=== PATIENT | male | born 1990 | race Caucasian/White ===

== ENCOUNTER 2022-03-23 12:45 | Inpatient (IN) ==
[2022-03-23 14:38] LABS: Basophils # (auto) 0.06 K/uL (0-0.2); Basophils % (auto) 0.5 %; Eosinophils # (auto) 0.12 K/uL (0-0.50); Eosinophils % (auto) 1.1 %; Hematocrit (blood only) 39.8 % (40.1-51.0); Hemoglobin 13.5 g/dl (14.0-18.0); Immature Granulocytes % (auto) 0.9 %; Lymphocytes # (auto) 2.28 K/uL (1.2-3.4); Lymphocytes % (auto) 20.2 %; Mean Corpuscular Hemoglobin 28.8 pg (25.0-34.0); Mean Corpuscular Hgb Conc 33.9 g/dL (32.0-36.0); Mean Platelet Volume 9.5 fL (9.4-12.4); Monocytes # (auto) 0.85 K/uL (0.24-0.82); Monocytes % (auto) 7.5 %; Neutrophils # (auto) 7.85 K/uL (1.4-6.5); Neutrophils % (auto) 69.8 %; Platelet Count 290 K/uL (130-400); RDW Coefficient of Variation 12.6 % (11.5-14.5); RDW Standard Deviation 38.7 fL (36.4-46.3); Red Blood Count 4.68 M/uL (4.63-6.08); White Blood Count 11.26 K/ul (4.8-10.8)
[2022-03-23 15:08] LABS: Appearance Urine Clear (Clear); Bacteria Urine Automated Negative (Negative); Bilirubin Urine Negative (Negative); Blood Urine 2+ (Negative); Color Urine Yellow; Glucose Urine UA 3+ (Negative); Ketones Urine Trace (Negative); Leukocyte Esterase Urine Negative (Negative); Nitrite Urine Negative (Negative); Protein Urine Trace (Negative); Specific Gravity Urine 1.038 (1.000-1.030); Urobilinogen Urine Negative (Negative); WBC Urine Automated >30 /hpf (0-5); pH Urine 5.5 (4.5-7.5)
[2022-03-23 15:09] LABS: Albumin Globulin Ratio 1.1 (0.9-2); Albumin Level 4.3 gm/dl (3.4-5.0); BUN Creatinine Ratio 15.2 (10-20); Bilirubin,Total 0.7 mg/dl (0.2-1.0); Calcium 9.6 mg/dl (8.5-10.1); Creatinine Clr Calc Pharmacy 163.4 ml/min; Est GFR (African American) 116.3 ml/min; Est GFR (Non-African American) 100.4 ml/min; Potassium 4.2 mmol/L (3.5-5.1); Total Protein 8.3 gm/dl (6.0-8.3)
[2022-03-23] MEDS: SODIUM CHLORIDE 0.9% 500 ML IV STA ×2 (15:27→15:56)
[2022-03-23] MEDS ORDERED: SODIUM CHLORIDE 0.9% 1000ML 1,000 ML IV ONE (15:28)
[2022-03-23] MEDS ORDERED: NovoLIN-R INSULIN PER UNIT CHARGE IV STA (15:28)
[2022-03-23] MEDS ORDERED: PIPERACILLIN/TAZOBACTAM 4.5 GM/120 ML BAG IV ONE (15:39)
[2022-03-23] MEDS ORDERED: IOVERSOL 350 MG 100mL Prefilled Syringe IV ONE (15:48)
[2022-03-23] MEDS ORDERED: TAMSULOSIN HCL 0.4 MG CAP PO ONE (16:20)
--- NOTE | 2022-03-23 17:14 | Emergency Department Note ---
Impression & Plan Right ureteral calculus, UTI (urinary tract infection) ED Provider Note CHIEF COMPLAINT: Right flank pain HISTORY OF PRESENT ILLNESS: This 32-year-old male patient presents to the emergency department with complaints of right flank pain that began suddenly at about 5 AM. The patient states several weeks ago he had burning with urination but that seemed to resolve. He did test positive for COVID about 10 days ago but has been fairly asymptomatic. Today he woke up suddenly with this pain but denies fevers, vomiting or diarrhea. He thinks he may have had some blood in the urine. Patient states he has followed with Dr. Sherman but has not seen him in "a while." He does not take any medications. REVIEW OF SYSTEMS: A review of systems was performed with positives and pertinent negatives listed in the history of present illness. 10 systems were reviewed and are otherwise negative. ALLERGIES: see below MEDICATIONS: see below PMH: see below SOCIAL HISTORY: see below DDx: Renal colic, UTI, appendicitis, diverticulitis, mesenteric ischemia, aortic pathology, infections, inflammatory bowel disease, PUD, biliary pathology, as well as other pathologies. PHYSICAL EXAM: Vital signs reviewed. General: Well-appearing 32-year-old male, in no significant distress. HEENT: No scleral icterus, PERRLA, neck supple. Moist mucous membranes. Cardiovascular: Regular rate and rhythm, no extra sounds. Pulmonary: Clear to auscultation bilaterally, normal work of breathing. Abdomen: Soft, obese nontender, nondistended, positive bowel sounds. Musculoskeletal: Atraumatic, no peripheral edema. No CVA tenderness. Neurologic: Patient awake alert and oriented x 3, speech is clear Skin: Warm, dry, no rash EMERGENCY DEPARTMENT COURSE/MDM: This patient was evaluated and appeared to be in no significant distress. IV access was obtained and laboratory work was drawn. The patient was placed on the compliance monitor and noted to be in a normal sinus rhythm. He was hydrated with normal saline solution. Laboratory work reveals a mild leukocytosis, normal renal function however his glucose is 294. UA is indicative of infection with greater than 30 WBCs, however there are no nitrates and negative leukocyte esterase. Patient is noted to have a distal ureteral calculus on CT imaging on the right side. Given his uncontrolled diabetes, positive UA and an obstructing stone, patient will be evaluated by the hospitalist service for further management. Dr. Govea of urology was consulted and will see the patient for further management. MONITORING: An order for cardiac monitoring was placed and the patient is noted to be in a NSR at 92 beats per minute. RADIOLOGY: See below DISPOSITION: Admission Past Med/Surg History Medical History Diabetes mellitus type 2 in obese Diarrhea Essential hypertension Head ache Hyperglycemia Kidney calculus Morbid obesity Morbid obesity with BMI of 45.0-49.9, adult Viral illness Family History Grandfather (Maternal) Diabetes Other No pertinent family history in first degree relatives Social History Smoking Status: Never smoker Hx Alcohol Use: Yes Alcohol type: other Hx Substance Use: No Preferred Language: Hong Konger Communication Ability: Effective Manager Test Required: No Beliefs That Will Affect Care: None Current Living Situation: Parent and Family Feels Safe at Home: Yes Assistive Devices: None Allergies Allergies Allergy/AdvReac Type Severity Reaction Status Date / Time No Known Allergies Allergy Verified 03/23/22 16:27 Home Meds Previous Rx's Medication Instructions Recorded acetaminophen 325 mg tablet 650 mg PO Q8H PRN mild pain (scale 03/25/22 score 1-4) #30 tabs blood sugar diagnostic (OneTouch #100 ea 03/25/22 Verio test strips) blood-glucose meter (OneTouch #1 ea 03/25/22 Verio Meter) lancets 33 gauge (OneTouch Delica #100 ea 03/25/22 Lancets) lisinopril 2.5 mg tablet 2.5 mg PO QAM #30 tabs 03/25/22 metformin 500 mg tablet,extended 500 mg PO PM #30 tabs 03/25/22 release 24 hr tamsulosin 0.4 mg capsule 0.4 mg PO QAM #30 caps 03/25/22 Results & Data (ED) Vital Signs Vital Signs - 24 hr 03/23/22 13:05 03/23/22 15:28 Temperature 36.8 C Temperature Source Oral Pulse Rate 103 H Pulse Rate [Right Finger] 92 H Respiratory Rate 20 20 Respiratory Effort / Characteristics Non-Labored Respiratory Depth Normal Blood Pressure 204/125 H Blood Pressure [Right Arm] 155/94 H Blood Pressure Mean 151 Blood Pressure Mean [Right Arm] 114 Pulse Oximetry 97 97 Oxygen Delivery Method Room Air Sepsis Recent Fever Within 48 Hours No Sepsis New/Unexplained Change in Mental Status No Sepsis Action Taken by Nursing No Action Required Home Medications Current Medication List: was personally reviewed by me Laboratory Data Attestation: I reviewed the patient's lab results. Result diagrams: 03/25/22 09:41 03/25/22 09:41 Lab Results 03/23/22 03/23/22 03/23/22 Range/Units 14:25 14:25 14:25 WBC 11.26 H (4.8-10.8) K/ul RBC 4.68 (4.63-6.08) M/uL Hgb 13.5 L (14.0-18.0) g/dl Hct 39.8 L (40.1-51.0) % MCV 85.0 (80.0-100.0) fL MCH 28.8 (25.0-34.0) pg MCHC 33.9 (32.0-36.0) g/dL RDW Std Deviation 38.7 (36.4-46.3) fL RDW Coeff of Ponce 12.6 (11.5-14.5) % Plt Count 290 (130-400) K/uL MPV 9.5 (9.4-12.4) fL Immature Gran % (Auto) 0.9 % Neut % (Auto) 69.8 % Lymph % (Auto) 20.2 % [place] % (Auto) 7.5 % Eos % (Auto) 1.1 % Baso % (Auto) 0.5 % Neut # (Auto) 7.85 H (1.4-6.5) K/uL Lymph # (Auto) 2.28 (1.2-3.4) K/uL [place] # (Auto) 0.85 H (0.24-0.82) K/uL Eos # (Auto) 0.12 (0-0.50) K/uL Baso # (Auto) 0.06 (0-0.2) K/uL Immature Gran # (Auto) 0.10 H (0.00-0.02) K/uL Sodium 136 (136-145) mmol/L Potassium 4.2 (3.5-5.1) mmol/L Chloride 97 L (98-107) mmol/L Carbon Dioxide 24 (21-32) mmol/L Anion Gap 11.4 H (3-11) BUN 15 (6-23) mg/dl Creatinine 0.99 (0.6-1.4) mg/dl Est Cr Clr Drug Dosing 163.4 ml/min Est GFR ( Amer) 116.3 ml/min Est GFR (Non-Af Amer) 100.4 ml/min BUN/Creatinine Ratio 15.2 (10-20) Glucose 294 H (70-99(Fasting)) mg/dl Calcium 9.6 (8.5-10.1) mg/dl Total Bilirubin 0.7 (0.2-1.0) mg/dl AST 34 (13-39) U/L ALT 65 H (7-52) U/L Alkaline Phosphatase 84 (34-104) U/L Total Protein 8.3 (6.0-8.3) gm/dl Albumin 4.3 (3.4-5.0) gm/dl Globulin 4.0 (2.5-4.0) gm/dl Albumin/Globulin Ratio 1.1 (0.9-2) TSH (0.300-4.500) uIu/ml Urine Color Yellow Urine Appearance Clear (Clear) Urine pH 5.5 (4.5-7.5) Ur Specific [place] 1.038 H (1.000-1.030) Urine Protein Trace H (Negative) Urine Glucose (UA) 3+ H (Negative) Urine Ketones Trace H (Negative) Urine Blood 2+ H (Negative) Urine Nitrite Negative (Negative) Urine Bilirubin Negative (Negative) Urine Urobilinogen Negative (Negative) Ur Leukocyte Esterase Negative (Negative) Urine WBC (Auto) >30 H (0-5) /hpf Urine RBC (Auto) 10-30 H (0-4) /hpf U Hyaline Cast (Auto) 1-5 (0-5) /lpf U Epithel Cells (Auto) 10-20 H (0-5) /lpf Urine Bacteria (Auto) Negative (Negative) SARS-CoV-2, RNA, NAAT (NEGATIVE) 03/23/22 03/23/22 Range/Units 14:25 16:40 WBC (4.8-10.8) K/ul RBC (4.63-6.08) M/uL Hgb (14.0-18.0) g/dl Hct (40.1-51.0) % MCV (80.0-100.0) fL MCH (25.0-34.0) pg MCHC (32.0-36.0) g/dL RDW Std Deviation (36.4-46.3) fL RDW Coeff of Ponce (11.5-14.5) % Plt Count (130-400) K/uL MPV (9.4-12.4) fL Immature Gran % (Auto) % Neut % (Auto) % Lymph % (Auto) % [place] % (Auto) % Eos % (Auto) % Baso % (Auto) % Neut # (Auto) (1.4-6.5) K/uL Lymph # (Auto) (1.2-3.4) K/uL [place] # (Auto) (0.24-0.82) K/uL Eos # (Auto) (0-0.50) K/uL Baso # (Auto) (0-0.2) K/uL Immature Gran # (Auto) (0.00-0.02) K/uL Sodium (136-145) mmol/L Potassium (3.5-5.1) mmol/L Chloride (98-107) mmol/L Carbon Dioxide (21-32) mmol/L Anion Gap (3-11) BUN (6-23) mg/dl Creatinine (0.6-1.4) mg/dl Est Cr Clr Drug Dosing ml/min Est GFR ( Amer) ml/min Est GFR (Non-Af Amer) ml/min BUN/Creatinine Ratio (10-20) Glucose (70-99(Fasting)) mg/dl Calcium (8.5-10.1) mg/dl Total Bilirubin (0.2-1.0) mg/dl AST (13-39) U/L ALT (7-52) U/L Alkaline Phosphatase (34-104) U/L Total Protein (6.0-8.3) gm/dl Albumin (3.4-5.0) gm/dl Globulin (2.5-4.0) gm/dl Albumin/Globulin Ratio (0.9-2) TSH 0.680 (0.300-4.500) uIu/ml Urine Color Urine Appearance (Clear) Urine pH (4.5-7.5) Ur Specific [place] (1.000-1.030) Urine Protein (Negative) Urine Glucose (UA) (Negative) Urine Ketones (Negative) Urine Blood (Negative) Urine Nitrite (Negative) Urine Bilirubin (Negative) Urine Urobilinogen (Negative) Ur Leukocyte Esterase (Negative) Urine WBC (Auto) (0-5) /hpf Urine RBC (Auto) (0-4) /hpf U Hyaline Cast (Auto) (0-5) /lpf U Epithel Cells (Auto) (0-5) /lpf Urine Bacteria (Auto) (Negative) SARS-CoV-2, RNA, NAAT NEGATIVE (NEGATIVE) Administered Medications Discontinued Medications Acetaminophen (Acetaminophen 325 Mg Tab) 650 mg PO Q4H PRN PRN Reason: pain/fever Stop: 04/22/22 18:32 Last Admin: 03/25/22 11:49 Dose: 650 mg Documented By: YUNI Carvedilol (Carvedilol 3.125 Mg Tab) 3.125 mg PO NOW ONE Stop: 03/23/22 17:45 Last Admin: 03/23/22 18:19 Dose: 3.125 mg Documented By: JAH Enoxaparin Sodium (Enoxaparin Inj 40 Mg/0.4 Ml Syr) 40 mg SQ HS FERMIN Stop: 04/22/22 18:59 Last Admin: 03/24/22 20:46 Dose: 40 mg Documented By: Admin: 03/23/22 20:50 Dose: 40 mg Documented By: BALDOMERO Sodium Chloride (Nss) 500 mls @ 999 mls/hr IV .Q31M STA Stop: 03/23/22 14:19 Last Admin: 03/23/22 15:56 Dose: Not Given Documented By: JAH Sodium Chloride (Nss 1000ml) 1,000 mls @ 999 mls/hr IV .Q1H1M ONE Stop: 03/23/22 16:28 Last Infusion: 03/23/22 17:05 Dose: 0 mls/hr Documented By: Admin: 03/23/22 16:04 Dose: 999 mls/hr Documented By: JAH Piperacillin Sod/Tazobactam Sod (Zosyn) 4.5 gm in 120 mls @ 240 mls/hr IV NOW ONE Stop: 03/23/22 16:08 Last Infusion: 10/08/22 16:34 Dose: 0 mls/hr Documented By: Admin: 03/23/22 16:04 Dose: 240 mls/hr Documented By: JAH Sodium Chloride (Nss 1000ml) 1,000 mls @ 75 mls/hr IV .[id number] FERMIN Stop: 04/22/22 17:44 Last Infusion: 03/24/22 14:44 Dose: 0 mls/hr Documented By: [id number] Admin: 03/24/22 09:05 Dose: 75 mls/hr Documented By: [id number] Infusion: 03/24/22 09:04 Dose: 0 mls/hr Documented By: [id number] Admin: 03/23/22 19:44 Dose: 75 mls/hr Documented By: BALDOMERO Piperacillin Sod/Tazobactam (Sod 4.5 gm/ Dextrose) 120 mls @ 30 mls/hr IV Q8H [facility]; Protocol Stop: 04/02/22 20:59 Last Admin: 03/25/22 12:51 Dose: 30 mls/hr Documented By: Infusion: 03/25/22 09:53 Dose: 0 mls/hr Documented By: Admin: 03/25/22 05:45 Dose: 30 mls/hr Documented By: Infusion: 03/25/22 00:50 Dose: 0 mls/hr Documented By: Admin: 03/24/22 20:46 Dose: 30 mls/hr Documented By: Infusion: 03/24/22 19:10 Dose: 0 mls/hr Documented By: Admin: 03/24/22 15:10 Dose: 30 mls/hr Documented By: [id number] Infusion: 03/24/22 09:55 Dose: 0 mls/hr Documented By: [id number] Admin: 03/24/22 05:55 Dose: 30 mls/hr Documented By: Infusion: 03/24/22 00:47 Dose: 0 mls/hr Documented By: Admin: 03/23/22 20:45 Dose: 30 mls/hr Documented By: BALDOMERO Insulin Aspart (Insulin Aspart Per Unit) 0 units SC ACHS FERMIN Stop: 04/22/22 18:44 Last Admin: 03/23/22 23:29 Dose: Not Given Documented By: Admin: 03/23/22 20:49 Dose: 5 units Documented By: BALDOMERO Co-signed By: PRICE Insulin Aspart (Insulin Aspart Per Unit) 0 units SC Q6 FERMIN Stop: 04/23/22 00:00 Last Admin: 03/24/22 18:36 Dose: 9 units Documented By: [id number] Co-signed By: YEN Admin: 03/24/22 13:50 Dose: 6 units Documented By: [id number] Co-signed By: YEN Admin: 03/24/22 06:12 Dose: 2 units Documented By: BALDOMERO Co-signed By: SADIE Admin: 03/24/22 00:47 Dose: 3 units Documented By: BALDOMERO Co-signed By: SADIE Insulin Aspart (Insulin Aspart Per Unit) 0 units SC ACHS [facility] Stop: 04/23/22 20:59 Last Admin: 03/25/22 12:51 Dose: 5 units Documented By: YUNI Co-signed By: BEATRIZ Admin: 03/25/22 09:04 Dose: 8 units Documented By: YUNI Co-signed By: ANDREW Admin: 03/24/22 21:46 Dose: 6 units Documented By: BALDOMERO Co-signed By: PRICE Insulin Glargine (Lantus Per Unit Charge) 10 units SQ ONE ONE Stop: 03/23/22 19:01 Last Admin: 03/23/22 20:49 Dose: 10 units Documented By: BALDOMERO Co-signed By: PRICE Insulin Glargine (Lantus Per Unit Charge) 15 units SQ ONE ONE Stop: 03/24/22 07:46 Last Admin: 03/24/22 09:12 Dose: 15 units Documented By: [id number] Co-signed By: YEN Insulin Glargine (Lantus Per Unit Charge) 0 units SQ [facility]; Protocol Stop: 04/23/22 20:59 Last Admin: 03/24/22 21:46 Dose: 20 units Documented By: BALDOMERO Co-signed By: PRICE Insulin Glargine (Lantus Per Unit Charge) 35 units SQ ONE ONE Stop: 03/25/22 09:01 Last Admin: 03/25/22 09:04 Dose: 35 units Documented By: YUNI Co-signed By: ANDREW Insulin Human Regular (Novolin-R Insulin Per Unit Charge) 6 units IV NOW STA Stop: 03/23/22 15:29 Last Admin: 03/23/22 16:05 Dose: 6 units Documented By: JAH Co-signed By: LANEY Ioversol (Ioversol 350 Mg 100ml Prefilled Syringe) 93 ml IV ONCE ONE Stop: 03/23/22 15:49 Last Admin: 03/23/22 15:48 Dose: 93 ml Documented By: ALAN Lisinopril (Lisinopril 2.5 Mg Tab) 2.5 mg PO QAM [facility] Stop: 04/23/22 08:59 Last Admin: 03/25/22 09:01 Dose: 2.5 mg Documented By: Admin: 03/24/22 09:06 Dose: 2.5 mg Documented By: [id number] Morphine Sulfate (Morphine Sulfate 4 Mg/Ml 1 Ml Carp\\Vial) 4 mg IV Q4H PRN PRN Reason: Pain Stop: 04/06/22 20:23 Last Admin: 03/23/22 20:41 Dose: 4 mg Documented By: BALDOMERO Oxycodone HCl (Oxycodone Hcl Ir 5 Mg Tab (Immediate Release)) 5 - 10 mg PO QID PRN PRN Reason: Pain Stop: 04/06/22 20:23 Last Admin: 03/24/22 00:51 Dose: 10 mg Documented By: BALDOMERO Tamsulosin HCl (Tamsulosin Hcl 0.4 Mg Cap) 0.4 mg PO NOW ONE Stop: 03/23/22 16:21 Last Admin: 03/23/22 16:44 Dose: 0.4 mg Documented By: JAH Tamsulosin HCl (Tamsulosin Hcl 0.4 Mg Cap) 0.4 mg PO ONE ONE Stop: 03/24/22 14:31 Last Admin: 03/24/22 15:50 Dose: 0.4 mg Documented By: [id number] Tamsulosin HCl (Tamsulosin Hcl 0.4 Mg Cap) 0.4 mg PO [facility] Stop: 04/24/22 08:59 Last Admin: 03/25/22 09:02 Dose: 0.4 mg Documented By: YUNI Discharge Plan Visit Data Chief Complaint: Flank Pain Stated Complaint: BACK PAIN, FLANK PAIN ED Provider: Ruma Weeks Discharge Problem: Right ureteral calculus, UTI (urinary tract infection) Patient Disposition: Admitted As Inpatient Discharge Instructions Interventions: ED Discharge Assessment Last Done: 03/23/22 18:23
--- NOTE | 2022-03-23 17:36 | History & Physical Report ---
Date of Service March 23, 2022 Assessment & Plan (1) Right ureteral calculus: Plan: Seen in CT scan of the abdomen associated with pain in the right flank Admit to general medical floor, symptomatic management of pain and discomfort. Started on Flomax Urology consulted and recommended the patient to be n.p.o. after midnight for possible urological procedure (2) UTI (urinary tract infection): Plan: Abnormal urinalysis likely due to nephrolithiasis Started on Zosyn. We will continue on follow-up with a urine culture (3) Diabetes mellitus type 2 in obese: Plan: New diagnosis of hyperglycemia. Patient has not been under the care of a physician for at least 3 years He is morbidly obese Start insulin therapy. Consult pharmacy for management Will need outpatient follow-up with primary care physician and may transition to oral hypoglycemic agent Had a long discussion with the patient regarding improving his lifestyle, exe rcise and weight loss (4) Essential hypertension: Plan: New diagnosis. Patient was not on any blood pressure medications Will start on low-dose lisinopril (5) Hyponatremia: Plan: Likely pseudohyponatremia due to uncontrolled hyperglycemia in conjunction with dehydration Continue IV fluid and recheck BMP in the morning (6) Morbid obesity: Plan: Discussed healthy lifestyle with the patient. Recommended exercise and weight loss Will check TSH and free T4 Check fasting lipid profile History of Present Illness Chief Complaint: Abdominal pain Primary Care Provider: Florentino Sherman MD Patient is a 32-year-old male with no known medical problem who suffered from COVID-19 infection 2 weeks ago presented to the hospital with right-sided flank and abdominal pain. It is started this morning and woke him up from sleep. 10/10 in severity with radiation to the right lower quadrant and groin. Patient remembers some urinary symptoms including dysuria and 1 drop of blood with no fever or chills about 2 weeks ago around the time he had COVID-19 infection but he denies any fever, chills, nausea, vomiting, dysuria or hematuria now. Severity of pain is 4-[address] scan of the abdomen is concerning for right-sided nephrolithiasis with abn ormal urinalysis. He was also found to have elevated blood sugar and hyponatremia. He has not seen a doctor for at least 3 years. He is not taking any medication on a regular basis. He will be admitted to the hospital with a diagnosis of UTI due to nephrolithiasis, new diagnosis of diabetes mellitus type 2 in obese. Allergies Allergy/AdvReac Type Severity Reaction Status Date / Time No Known Allergies Allergy Verified 03/23/22 16:27 Home Medications Medication Instructions Recorded Confirmed Type No Known Home Medications 03/23/22 03/23/22 History Past Med/Surg History Medical History (Updated 03/23/22 @ 17:35 by Sharita Mcclain MD) Diabetes mellitus type 2 in obese Diarrhea Essential hypertension Head ache Hyperglycemia Kidney calculus Morbid obesity Morbid obesity with BMI of 45.0-49.9, adult Viral illness Family History (Updated 03/23/22 @ 17:30 by Sharita Mcclain MD) Grandfather (Maternal) Diabetes Other No pertinent family history in first degree relatives Social History Smoking Status: Never smoker Feels Safe at Home: Yes Review of Systems Review of Systems: Review of system as above, otherwise negative Physical Exam Constitutional: WD/WN, vitals as above Right-sided abdominal pain 11/23 Morbid obese Eyes: PERRL, conjunctivae normal, anicteric sclerae Neck: trachea midline, no thyromegaly Respiratory: normal respiratory effort, lungs clear to auscultation Cardiovascular: RRR, no murmur, no edema Gastrointestinal (Abdomen): Right flank and costovertebral angle tenderness Musculoskeletal: no cyanosis or clubbing, extremities motor strength 5/5 Skin: no rashes, warm and dry Neurologic: patellar DTR's 2+ bilat, sensation intact and PERRL, EOMI, accommodation nl, no face palsy, no dysarthria Results & Data Results & Data ([facility]) Vital Signs (Past 12 Hours) Vital Signs Temp Pulse Pulse Resp BP BP Pulse Ox 03/23/22 15:28 92 H 20 155/94 H 97 03/23/22 13:05 36.8 C 103 H 20 204/125 H 97 O2 Del Method 03/23/22 15:28 Room Air 03/23/22 13:05 Laboratory Results Laboratory Results WBC 11.26 K/ul (4.8-10.8) H 03/23/22 14:25 RBC 4.68 M/uL (4.63-6.08) 03/23/22 14:25 Hgb 13.5 g/dl (14.0-18.0) L 03/23/22 14:25 Hct 39.8 % (40.1-51.0) L 03/23/22 14:25 MCV 85.0 fL (80.0-100.0) 03/23/22 14:25 MCH 28.8 pg (25.0-34.0) 03/23/22 14: MCHC 33.9 g/dL (32.0-36.0) 03/23/22 14:25 RDW Std Deviation 38.7 fL (36.4-46.3) 03/23/22 14: RDW Coeff of Ponce 12.6 % (11.5-14.5) 03/23/22 14: Plt Count 290 K/uL (130-400) 03/23/22 14: MPV 9.5 fL (9.4-12.4) 03/23/22 14:25 Immature Gran % (Auto) 0.9 % 03/23/22 14:25 Neut % (Auto) 69.8 % 03/23/22 14:25 Lymph % (Auto) 20.2 % 03/23/22 14:25 [place] % (Auto) 7.5 % 03/23/22 14:25 Eos % (Auto) 1.1 % 03/23/22 14:25 Baso % (Auto) 0.5 % 03/23/22 14:25 Neut # (Auto) 7.85 K/uL (1.4-6.5) H 03/23/22 14:25 Lymph # (Auto) 2.28 K/uL (1.2-3.4) 03/23/22 14:25 [place] # (Auto) 0.85 K/uL (0.24-0.82) H 03/23/22 14:25 Eos # (Auto) 0.12 K/uL (0-0.50) 03/23/22 14: Baso # (Auto) 0.06 K/uL (0-0.2) 03/23/22 14:25 Immature Gran # (Auto) 0.10 K/uL (0.00-0.02) H 03/23/22 14:25 Sodium 129 mmol/L (136-145) L 03/23/22 14:25 Potassium 4.2 mmol/L (3.5-5.1) 03/23/22 14:25 Chloride 97 mmol/L (98-107) L 03/23/22 14:25 Carbon Dioxide 24 mmol/L (21-32) 03/23/22 14:25 Anion Gap 8 (3-11) 03/23/22 14:25 BUN 15 mg/dl (6-23) 03/23/22 14:25 Creatinine 0.99 mg/dl (0.6-1.4) 03/23/22 14:25 Est Cr Clr Drug Dosing 163.4 ml/min 03/23/22 14:25 Est GFR ( Amer) 116.3 ml/min 03/23/22 14:25 Est GFR (Non-Af Amer) 100.4 ml/min 03/23/22 14:25 BUN/Creatinine Ratio 15.2 (10-20) 03/23/22 14:25 Glucose 294 mg/dl (70-99(Fasting)) H 03/23/22 14:25 Calcium 9.6 mg/dl (8.5-10.1) 03/23/22 14:25 Total Bilirubin 0.7 mg/dl (0.2-1.0) 03/23/22 14:25 AST 34 U/L (13-39) 03/23/22 14:25 ALT 65 U/L (7-52) H 03/23/22 14:25 Alkaline Phosphatase 84 U/L (34-104) 03/23/22 14:25 Total Protein 8.3 gm/dl (6.0-8.3) 03/23/22 14:25 Albumin 4.3 gm/dl (3.4-5.0) 03/23/22 14:25 Globulin 4.0 gm/dl (2.5-4.0) 03/23/22 14:25 Albumin/Globulin Ratio 1.1 (0.9-2) 03/23/22 14:25 Urine Color Yellow 03/23/22 14:25 Urine Appearance Clear (Clear) 03/23/22 14:25 Urine pH 5.5 (4.5-7.5) 03/23/22 14:25 Ur Specific [place] 1.038 (1.000-1.030) H 03/23/22 14:25 Urine Protein Trace (Negative) H 03/23/22 14:25 Urine Glucose (UA) 3+ (Negative) H 03/23/22 14:25 Urine Ketones Trace (Negative) H 03/23/22 14:25 Urine Blood 2+ (Negative) H 03/23/22 14:25 Urine Nitrite Negative (Negative) 03/23/22 14:25 Urine Bilirubin Negative (Negative) 03/23/22 14:25 Urine Urobilinogen Negative (Negative) 03/23/22 14:25 Ur Leukocyte Esterase Negative (Negative) 03/23/22 14:25 Urine WBC (Auto) >30 /hpf (0-5) H 03/23/22 14:25 Urine RBC (Auto) 10-30 /hpf (0-4) H 03/23/22 14:25 U Hyaline Cast (Auto) 1-5 /lpf (0-5) 03/23/22 14:25 U Epithel Cells (Auto) 10-20 /lpf (0-5) H 03/23/22 14:25 Urine Bacteria (Auto) Negative (Negative) 03/23/22 14:25 SARS-CoV-2, RNA, NAAT NEGATIVE (NEGATIVE) 03/23/22 16:[address] scan of the abdomen and pelvis with questionable right ureteral stone Code Status & VTE Plan Code Status Full code VTE Prophylaxis Plan VTE Prophylaxis will be ordered: Yes
[2022-03-23] MEDS ORDERED: carvediloL 3.125 MG TAB PO ONE (17:44)
--- NOTE | 2022-03-23 18:23 | CT Scan Report ---
CT OF THE ABDOMEN AND PELVIS WITH CONTRAST CLINICAL HISTORY: Kidney stone, pyelonephritis. COMPARISON STUDY: CT of the abdomen and pelvis June 17, 2019. TECHNIQUE: Following IV administration of 93 mL of Optiray, axial images of the abdomen and pelvis we re obtained from the lung bases to the proximal femurs. Images were reviewed in the axial, sagittal, and coronal planes. IV contrast was administered without complication. Automated exposure control wa s utilized for the study. A dose lowering technique was utilized adhering to the principles of ALARA . CT DOSE: 1876.32 mGy.cm FINDINGS: Lung bases are unremarkable. A 4 mm distal right ureteral calculus approximately 2.5 cm pro ximal to the ureterovesical junction results in mild right hydronephrosis. The right nephrogram is de layed. There is right perinephric and periureteral stranding. Enhancement of the right kidney is hete rogeneous. A 3 mm right renal calculus is present. A few small left renal calculi measure up to 2 mm. There are no left ureteral calculi. Hepatic steatosis and hepatomegaly are noted. Spleen, adrenal gl ands and pancreas are unremarkable. There is no evidence for a bowel obstruction. The appendix is nor mal. Caliber and wall thickness of small and large bowel are normal. There is no lymphadenopathy. IMPRESSION: 1. 4 mm distal right ureteral calculus which results in mild right hydronephrosis with perinephric an d periureteral stranding. Delayed right nephrogram with heterogeneous enhancement. These findings may be related to the obstruction however superimposed pyelonephritis could appear similar. No renal abs cess. 2. Bilateral nephrolithiasis. 3. Hepatomegaly and hepatic steatosis. ACT 112: Negative or not required by law. Electronically signed by: Akin Olson M.D. 03/23/2022 6:21 PM
[2022-03-23] MEDS ORDERED: GLUCOSE 10 TAB/TUBE PO PRN (18:33)
[2022-03-23] MEDS ORDERED: MAGNESIUM HYDROXIDE SUSP 30 ML UDC PO PRN (18:33)
[2022-03-23] MEDS ORDERED: DEXTROSE 50% 50 ML SYRINGE IV PRN (18:33)
[2022-03-23] MEDS ORDERED: GLUCAGON FOR INJ 1 MG VIAL SQ PRN (18:33)
[2022-03-23] MEDS ORDERED: POLYETHYLENE (MIRALAX) 17 GM PACK PO PRN (18:33)
[2022-03-23] MEDS ORDERED: PHARMACY GLYCEMIC MGMT CONSULT PRN (18:33)
[2022-03-23] MEDS ORDERED: CARBOHYDRATES FOR HYPOGLYCEMIA PO PRN (18:33)
[2022-03-23] MEDS ORDERED: GLUCOSE 40% GEL 15 GM TUBE PO PRN (18:33)
[2022-03-23] MEDS ORDERED: ONDANSETRON INJ 2 MG/ML 2 ML VIAL IV PRN (18:33)
[2022-03-23] MEDS ORDERED: ACETAMINOPHEN 325 MG TAB PO PRN (18:33)
--- NOTE | 2022-03-23 18:49 | Pharmacy Report ---
Pharmacy Glycemic Short Note 2 - Date of Service March 23, 2022 - Glycemic Short BSG Results (Last 24 hours): 03/23/22 03/23/22 14:25 18:21 Glucose 294 H POC Glucose 210 H OUTPATIENT ANTIDIABETIC REGIMEN: * N/A * HbA1c ordered ASSESSMENT: * RB is a 32 year old male with likely new diagnosis of T2DM in setting of morbid obesity * Admitted for right ureteral calculus/suspected UTI, receiving Zosyn currently * Hyperglycemia on presentation (BSG of 294 mg/dL), received 6 mg IV Novolin-R with follow-up BSG of 210 mg/dL * Will order conservative initial insulin regimen in this insulin naive patient * NPO after midnight for possible urologic procedure tomorrow morning PLAN FOR INPATIENT GLYCEMIC CONTROL: * Hold outpatient oral diabetes medications * Basal insulin * Lantus 10 units SQ x 1 * Bolus insulin - based on weight-based stress of 2 dosing (adjusted body weight) * NovoLog per scale ACHS or Q6hrs while NPO * Goal Range: Low 110 mg/dL - High 140 mg/dL * Correction Factor: 20 mg/dL/unit * Nutritional / Prandial insulin per carb ratio of 1 unit per 7 grams CHO consumed
[2022-03-23] MEDS ORDERED: LANTUS PER UNIT CHARGE SQ ONE (19:00)
--- NOTE | 2022-03-23 19:25 | Urology Consultation ---
Date of Consultation March 23, 2022 Assessment & Plan (1) Right ureteral calculus: Plan 32-year-old male with a 3 to 4 mm right distal ureteral calculus. Additionally was admitted to hospital service for diabetes control. Discussed options for stone treatment including medical expulsive therapy versus surgical intervention. Given size and location, recommend medical expulsive therapy Flomax daily to help with passage of stone. Pain medication as needed. Low overall suspicion for infection based on UA. Follow cultures and treat if necessary Continue straining urine Please make patient n.p.o. at midnight in the event that his symptoms would worsen tomorrow morning as I then can take him to the OR for a stent placement Discussed with patient that if he exhibited signs of infection at any time, that would warrant stent as well History of Present Illness Reason for Consultation: Right ureteral calculus Attending Physician: Sharita Mcclain MD History of Present Illness 32-year-old male presented with abdominal pain. I independently reviewed a CT scan of the abdomen and pelvis which showed a 3 mm right distal ureteral calculus with mild hydronephrosis. He had bilateral nonobstructing stones, with the left side being punctate. Labs showed a mild leukocytosis of 11.2, sodium of 129, creatinine of 0.99, glucose of 294, and a urinalysis that was negative for nitrites, negative for leukocyte Estrace, greater than 30 WBCs, 10-30 RBCs and no bacteria. He was admitted to medicine for diabetic control. He reports his pain is a 9 out of 10 now but appears fairly comfortable. He is voiding spontaneously and straining his urine. He reports he does have a history of a previous kidney stone that he passed spontaneously. He has had no previous urologic procedures. He denies any tobacco use. He has no family history of kidney stones. Allergies Allergy/AdvReac Type Severity Reaction Status Date / Time No Known Allergies Allergy Verified 03/23/22 16:27 Home Medications Medication Instructions Recorded Confirmed Type No Known Home Medications 03/23/22 03/23/22 History Patient History Medical History (Updated 03/23/22 @ 17:35 by Sharita Mcclain MD) Diabetes mellitus type 2 in obese Diarrhea Essential hypertension Head ache Hyperglycemia Kidney calculus Morbid obesity Morbid obesity with BMI of 45.0-49.9, adult Viral illness Family History (Updated 03/23/22 @ 17:30 by Sharita Mcclain MD) Grandfather (Maternal) Diabetes Other No pertinent family history in first degree relatives Social History Smoking Status: Never smoker Hx Alcohol Use: Yes Alcohol type: other Hx Substance Use: No Preferred Language: Trinidadian Communication Ability: Effective Dock Superintendent Required: No Beliefs That Will Affect Care: None Current Living Situation: Parent and Family Other Information That Helps Us Care for You: No Feels Safe at Home: Yes Safety Concerns: Feels Safe At This Time Assistive Devices: Glasses Assistive Devices Comment: dentures does not use them Review of Systems Review of Systems: 14 point review of systems negative outside of what is listed above in HPI Physical Exam 2 Physical Exam: General: Alert and oriented, no acute distress HEENT: Normocephalic, mucous membranes moist Pulmonary: Nonlabored respirations Abdomen: Nondistended Extremities: Moves all 4 spontaneously Neuro: No gross deficits Skin: Warm, dry, no rashes noted Results & Data ([facility]) Vital Signs (Past 12 Hours) Vital Signs Temp Pulse Pulse Resp BP BP Pulse Ox 03/23/22 18:48 03/23/22 18:33 36.9 C 99 H 18 172/118 H 97 03/23/22 18:23 03/23/22 18:17 100 H 20 177/104 H 97 03/23/22 15:28 92 H 20 155/94 H 97 03/23/22 13:05 36.8 C 103 H 20 204/125 H 97 O2 Del Method 03/23/22 18:48 Room Air 03/23/22 18:33 Room Air 03/23/22 18:23 Room Air 03/23/22 18:17 Room Air 03/23/22 15:28 Room Air 03/23/22 13:05 PG Care Time/CCT Total # of Minutes Spent Total Time Spent with Patient: Total time spent is greater than 50% in coordination of care (as documented) at patient's floor/unit and/or counseling patient: Coding Level of Care Code 20246 Inpt Consult Level 5 Diagnoses Right ureteral calculus N20.1
[2022-03-23] MEDS: SODIUM CHLORIDE 0.9% 1000ML 1,000 ML IV SCH (19:44)
[2022-03-23] MEDS ORDERED: oxyCODONE HCL IR 5 MG TAB (IMMEDIATE RELEASE) PO PRN (20:24)
[2022-03-23] MEDS ORDERED: MoRPHine SULFATE 4 MG/ML 1 ML CARP\\VIAL IV PRN (20:24)
[2022-03-23] MEDS: PIPERACILLIN/TAZOBACTAM 4.5 GM in DEXTROSE 5% 100 ML IV SCH (20:45)
[2022-03-23] MEDS: INSULIN ASPART PER UNIT SC SCH ×2 (20:49→23:29)
[2022-03-23] MEDS: ENOXAPARIN INJ 40 MG/0.4 ML SYR SQ SCH (20:50)
[2022-03-24] MEDS: INSULIN ASPART PER UNIT SC SCH ×5 (00:47→21:46)
[2022-03-24] MEDS: PIPERACILLIN/TAZOBACTAM 4.5 GM in DEXTROSE 5% 100 ML IV SCH ×3 (05:55→20:46)
[2022-03-24 06:43] LABS: Hematocrit (blood only) 35.7 % (40.1-51.0); Hemoglobin 12.2 g/dl (14.0-18.0); Mean Corpuscular Hemoglobin 29.3 pg (25.0-34.0); Mean Corpuscular Hgb Conc 34.2 g/dL (32.0-36.0); Mean Corpuscular Volume 85.6 fL (80.0-100.0); Mean Platelet Volume 9.5 fL (9.4-12.4); Platelet Count 256 K/uL (130-400); RDW Coefficient of Variation 12.8 % (11.5-14.5); RDW Standard Deviation 39.7 fL (36.4-46.3); Red Blood Count 4.17 M/uL (4.63-6.08)
[2022-03-24 07:02] LABS: Alanine Aminotransferase 51 U/L (7-52); Albumin Level 3.8 gm/dl (3.4-5.0); Alkaline Phosphatase 70 U/L (34-104); Aspartate Aminotransferase 26 U/L (13-39); BUN Creatinine Ratio 12.5 (10-20); Bilirubin,Total 0.8 mg/dl (0.2-1.0); Blood Urea Nitrogen 15 mg/dl (6-23); Calcium 8.8 mg/dl (8.5-10.1); Carbon Dioxide 23 mmol/L (21-32); Chloride 97 mmol/L (98-107); Cholesterol 235 mg/dl (0-200); Creatinine Clr Calc Pharmacy 134.8 ml/min; Est GFR (African American) 92.2 ml/min; Est GFR (Non-African American) 79.5 ml/min; Glucose 218 mg/dl (70-99(Fasting)); HDL Cholesterol 44 mg/dl; Potassium 3.7 mmol/L (3.5-5.1); Total Protein 7.4 gm/dl (6.0-8.3); Triglycerides 490 mg/dl (0-150)
[2022-03-24 07:05] LABS: Albumin Globulin Ratio 1.1 (0.9-2); Chol HDL Ratio 5.3 (0-5); Globulin 3.6 gm/dl (2.5-4.0)
[2022-03-24] MEDS ORDERED: LANTUS PER UNIT CHARGE SQ ONE (07:45)
--- NOTE | 2022-03-24 08:52 | Urology Progress Note ---
Date of Service March 24, 2022 Assessment & Plan (1) Right ureteral calculus: Plan 32-year-old male with a 3 to 4 mm distal right ureteral calculus Pain well controlled with oral medications. Recommend continuing medical expulsive therapy to avoid any unnecessary procedures. Discussed with patient reasons to come back to the hospital, which include worsening pain or fevers. Recommended the patient continue straining urine at home and bring in the stone for analysis if he passes it Urology will send a message to see patient in follow-up in 2 to 3 weeks to ensure stone passage Urology to sign off. Stable for discharge home from a urologic perspective. Admission and Anticipated Discharge Date Admission Date: March 23, 2022 Subjective Afebrile with stable vitals. Blood blood cell count stable 11.5. Creatinine 1.2 this morning. Urine cultures pending. Glucose levels remain elevated. Patient denies any pain currently. States oxycodone controls the pain appropriately. Denies passing the stone in strainer. Review of Systems Review of Systems: 14 point review of systems negative outside of what is listed above in HPI Physical Exam Physical Exam: General: Alert and oriented, no acute distress HEENT: Normocephalic, mucous membranes moist Pulmonary: Nonlabored respirations Abdomen: Nondistended Extremities: Moves all 4 spontaneously Neuro: No gross deficits Skin: Warm, dry, no rashes noted Results & Data ([facility]) Vital Signs (Past 12 Hours) Vital Signs Temp Pulse Resp BP Pulse Ox O2 Del Method 03/24/22 08:00 36.9 C 97 H 18 126/78 93 Room Air 03/23/22 21:25 36.8 C 89 18 143/89 H 95 Room Air PG Care Time/CCT Total # of Minutes Spent Total Time Spent with Patient: Total time spent is greater than 50% in coordination of care (as documented) at patient's floor/unit and/or counseling patient: Coding Level of Care Code 40526 Subseq Hosp Care Lvl 2 Diagnoses Right ureteral calculus N20.1
[2022-03-24] MEDS: SODIUM CHLORIDE 0.9% 1000ML 1,000 ML IV SCH (09:05)
[2022-03-24] MEDS: lisinopril 2.5 MG TAB PO SCH (09:06)
--- NOTE | 2022-03-24 14:09 | Hospitalist Progress Note ---
Date of Service March 24, 2022 Assessment & Plan (1) Diabetes mellitus type 2 in obese: (2) Right ureteral calculus: Plan 32-year-old male with no known medical problem who suffered from COVID-19 infection 2 weeks ago presented to the hospital 03/23 with complaint of right- sided flank pain that woke him up in the morning on the day of arrival, 03/25 in severity with radiation to right lower quadrant and groin. Patient did have complaint of burning while passing urine for 2 days around 2 weeks ago but no current burning sensation while passing urine. Is being managed for the following: Right ureteral calculus Abnormal urine analysis Patient came in with right flank pain [see above], admitting CT AP with 4 mm distal right ureteral calculus with mild right hydronephrosis with perinephric and periureteral stranding. Findings may be related to obstruction however superimposed pyelonephritis could appear similar. No renal abscess. Bilateral nephrolithiasis. Hepatomegaly and hepatic steatosis. Patient does have history of renal calculus which he passed around 3 years ago per patient. Admitting urine analysis abnormal, admitting urine culture pending. Patient was started on Zosyn 03/23, will continue the same for now until urine culture is finalized. Patient does report improvement in his right flank pain, continue pain management. Urology evaluated, continue with medical expulsive therapy, will need follow-up with urology in 2 to 3 weeks. Patient to strain all urine and collect stone if passed for stone analysis. Likely T2DM, new onset Obesity class III Admitting glucose of 294 at presentation, A1c pending Patient on sliding scale, glycemic pharmacy on board, will likely need oral medication upon discharge. tobacco educator consult. Patient established with diabetic clinic follow-up closely with PCP for continued care. Admitting TSH is within normal range. Patient advised regarding improving his lifestyle, exercise and weight loss. Essential hypertension: New diagnosis, high blood pressure at presentation, low- dose lisinopril was started, blood pressure fairly controlled, will continue to monitor. Patient will need labs in a week time upon discharge. Hyponatremia: Likely pseudohyponatremia due to uncontrolled hyperglycemia at presentation in conjunction with dehydration, will continue to monitor sodium level. DVT prophylaxis: Enoxaparin Full code Admission and Anticipated Discharge Date Admission Date: March 23, 2022 Subjective Patient seen and examined at bedside as a follow-up of right ureteral calculus, abnormal urine analysis, possible new onset type II DM [awaiting A1c level], new diagnosis of essential hypertension. Patient was lying in bed, on room air, NAD, reports improvement in his right flank pain, denies any further pain episodes, denies any pain or burning while passing urine currently, denies any headache or dizziness or chest pain or sore throat or cough or fever or chills or other review of symptoms. Physical Exam Physical Exam: GENERAL: Alert and oriented x3. NAD, on RA. Class III obese. HEENT: No pallor, no icterus. Pupils equal, round and reactive to light. Oral mucosa moist. NECK: No JVD, no neck masses. HEART: S1 and S2 heard. Regular rate and rhythm. No murmur, no gallop. RESPIRATORY SYSTEM: Normal AP diameter. No accessory muscle use. No wheezing, no crackles. ABDOMEN: Soft, bowel sounds present, nontender, no distention. CENTRAL NERVOUS SYSTEM: No facial droop. Speech is clear. Obeys simple commands. Moves extremities. EXTREMITIES: No edema, no erythema seen. No costovertebral angle tenderness. Results & Data Results & Data ([facility]) Vital Signs (Past 12 Hours) Vital Signs Temp Pulse Resp BP Pulse Ox O2 Del Method 03/24/22 08:00 36.9 C 97 H 18 126/78 93 Room Air
[2022-03-24] MEDS ORDERED: TAMSULOSIN HCL 0.4 MG CAP PO ONE (14:30)
--- NOTE | 2022-03-24 14:39 | Pharmacy Report ---
Pharmacy Glycemic Short Note 2 - Date of Service March 24, 2022 - Glycemic Short BSG Results (Last 24 hours): 03/23/22 03/23/22 03/23/22 14:25 18:21 20:31 Glucose 294 H POC Glucose 210 H 247 H 03/24/22 03/24/22 03/24/22 00:07 06:08 06:12 Glucose 218 H POC Glucose 203 H 198 H 03/24/22 12:12 Glucose POC Glucose 216 H OUTPATIENT ANTIDIABETIC REGIMEN: * N/A * HbA1c ordered ASSESSMENT: 03/24: * Patient received 24 units of insulin yesterday which included 10 units of basal, 8 units of SQ bolus and 6 units of IV bolus. * BSGs were above 200 mg/dl overnight and fasting today was 198 mg/dl. * Basal Lantus dose increased to 15 units this AM and HS dose scale added for tonight based on BSG. * Novolog correction tightened slightly this AM. * Patient showed improvement in pain and urologic procedure was not pursued today. Diet was ordered today. Background 03/23/22: * RB is a 32 year old male with likely new diagnosis of T2DM in setting of mo rbid obesity * Admitted for right ureteral calculus/suspected UTI, receiving Zosyn currently * Hyperglycemia on presentation (BSG of 294 mg/dL), received 6 mg IV Novolin-R with follow-up BSG of 210 mg/dL * Will order conservative initial insulin regimen in this insulin naive patient * NPO after midnight for possible urologic procedure tomorrow morning PLAN FOR INPATIENT GLYCEMIC CONTROL: * Basal insulin * Lantus 15 units SQ this AM * Lantus 10-20 units SQ based on BSG at HS * Bolus insulin- tightened CF * NovoLog per scale ACHS or Q6hrs while NPO * Goal Range: Low 110 mg/dL - High 140 mg/dL * Correction Factor: 15 mg/dL/unit * Nutritional / Prandial insulin per carb ratio of 1 unit per 7 grams CHO consumed
[2022-03-24 17:48] LABS: Anion Gap 10.9 (3-11)
[2022-03-24 17:49] LABS: Sodium 136 mmol/L (136-145)
[2022-03-24 19:03] LABS: Anion Gap 11.4 (3-11)
[2022-03-24] MEDS: ENOXAPARIN INJ 40 MG/0.4 ML SYR SQ SCH (20:46)
[2022-03-24] MEDS ORDERED: LANTUS PER UNIT CHARGE SQ SCH (21:00)
[2022-03-25] MEDS: PIPERACILLIN/TAZOBACTAM 4.5 GM in DEXTROSE 5% 100 ML IV SCH ×2 (05:45→12:51)
[2022-03-25 07:40] LABS: Estimated Average Glucose 229 mg/dl; Hemoglobin A1C 9.6 % (4.5-5.6)
[2022-03-25] MEDS ORDERED: TAMSULOSIN HCL 0.4 MG CAP PO SCH (09:00)
[2022-03-25] MEDS ORDERED: LANTUS PER UNIT CHARGE SQ ONE (09:00)
[2022-03-25] MEDS: lisinopril 2.5 MG TAB PO SCH (09:01)
[2022-03-25] MEDS: INSULIN ASPART PER UNIT SC SCH ×2 (09:04→12:51)
[2022-03-25 10:01] LABS: Hemoglobin 11.7 g/dl (14.0-18.0); Mean Corpuscular Hemoglobin 28.5 pg (25.0-34.0); Mean Corpuscular Hgb Conc 33.4 g/dL (32.0-36.0); Mean Corpuscular Volume 85.4 fL (80.0-100.0); Mean Platelet Volume 9.6 fL (9.4-12.4); Platelet Count 240 K/uL (130-400); RDW Coefficient of Variation 12.9 % (11.5-14.5); RDW Standard Deviation 39.7 fL (36.4-46.3); White Blood Count 8.14 K/ul (4.8-10.8)
[2022-03-25 10:27] LABS: BUN Creatinine Ratio 14.6 (10-20); Calcium 8.8 mg/dl (8.5-10.1); Est GFR (African American) 110.9 ml/min; Est GFR (Non-African American) 95.7 ml/min; Magnesium 2.2 mg/dl (1.7-2.4); Phosphorus 3.2 mg/dl (2.5-4.9); Potassium 3.8 mmol/L (3.5-5.1)
--- NOTE | 2022-03-25 14:47 | Discharge Summary ---
Discharge Summary Date of Service March 25, 2022 Notes For Next Care Provider Patient will need PCP follow-up in a week time. Patient will need diabetic clinic follow-up. Patient is a started on metformin XR 500 Mg daily, the dose needs to be uptitrated every week up to maximum of 2000 Mg daily as tolerated. Patient needs to follow-up with urology, patient to strain all his urine to collect the stone for analysis purpose. Patient will likely need blood test CBC/CMP/magnesium level in a week time after PCP evaluation. Patient was also diagnosed with essential hypertension, started on lisinopril/. Blood pressure assessment needs to be done. Medication Changes From Visit You have been started on metformin, lisinopril, tamsulosin. You can use [id number] Tylenol for mild pain. You are given few doses of oxycodone for severe pain. Admission HPI Per Admitting Provider Patient is a 32-year-old male with no known medical problem who suffered from COVID-19 infection 2 weeks ago presented to the hospital with right-sided flank and abdominal pain. It is started this morning and woke him up from sleep. 10/10 in severity with radiation to the right lower quadrant and groin. Patient remembers some urinary symptoms including dysuria and 1 drop of blood with no fever or chills about 2 weeks ago around the time he had COVID-19 infec tion but he denies any fever, chills, nausea, vomiting, dysuria or hematuria now. Severity of pain is 4-[address] scan of the abdomen is concerning for right-sided nephrolithiasis with abnormal urinalysis. He was also found to have elevated blood sugar and hyponatremia. He has not seen a doctor for at least 3 years. He is not taking any medication on a regular basis. He will be admitted to the hospital with a diagnosis of UTI due to nephrolithiasis, new diagnosis of diabetes mellitus type 2 in obese. Admission Exam Per Admitting Provider Constitutional:WD/WN, vitals as above Right-sided abdominal pain 6/10 Morbid obeseEyes:PERRL, conjunctivae normal, anicteric scleraeNeck:trachea midline, no thyromegalyRespiratory:normal respiratory effort, lungs clear to auscultationCardiovascular:RRR, no murmur, no edemaGastrointestinal (Abdomen):Right flank and costovertebral angle tendernessMusculoskeletal:no cyanosis or clubbing, extremities motor strength 5/5Skin:no rashes, warm and dryNeurologic:patellar DTR's 2+ bilat, sensation intact and PERRL, EOMI, accommodation nl, no face palsy, no dysarthria Principal Dx & Hospital Course #1 = Principal Diagnosis (1) Diabetes mellitus type 2 in obese: (2) Right ureteral calculus: Plan 32-year-old male with no known medical problem who suffered from COVID-19 infection 2 weeks ago presented to the hospital 03/23 with complaint of right-s ided flank pain that woke him up in the morning on the day of arrival, 03/25 in severity with radiation to right lower quadrant and groin. Patient did have complaint of burning while passing urine for 2 days around 2 weeks ago but no current burning sensation while passing urine. He was managed for the following: Right ureteral calculus Abnormal urine analysis Patient came in with right flank pain [see above], admitting CT AP with 4 mm distal right ureteral calculus with mild right hydronephrosis with perinephric and periureteral stranding. Findings may be related to obstruction however superimposed pyelonephritis could appear similar. No renal abscess. Bilateral nephrolithiasis. Hepatomegaly and hepatic steatosis. Patient does have history of renal calculus which he passed around 3 years ago per patient. Admitting urine analysis abnormal, admitting urine culture inconclusive. Patient was started on Zosyn 03/23, on po cefdinir on discharge Patient does report improvement in his right flank pain, continue pain management. Urology evaluated, continue with medical expulsive therapy, will need follow-up with urology in 2 to 3 weeks. Patient to strain all urine and collect stone if passed for stone analysis. Likely T2DM, new onset Obesity class III Admitting glucose of 294 at presentation, A1c pending Patient on sliding scale, glycemic pharmacy on board, will likely need oral medication upon discharge. diabetes educator consult. Patient will need to establish with diabetic clinic or follow-up closely with PCP for continued care. Admitting TSH is within normal range. Patient advised regarding improving his lifestyle, exercise and weight loss. Metformin XR 500 mg daily started, to be uptitrated by 500 Mg weekly half to 2000 MCG a day as tolerated. Essential hypertension: New diagnosis, high blood pressure at presentation, low- dose lisinopril was started, blood pressure fairly controlled, will continue to monitor. Patient will need labs in a week time upon discharge. Hyponatremia: Likely pseudohyponatremia due to uncontrolled hyperglycemia at presentation in conjunction with dehydration,resolved. DVT prophylaxis: Enoxaparin Full code Patient being discharged to home with following instruction at the point of discharge: Follow-up with your primary care physician within a week time. And likely you will need blood test CBC/CMP/magnesium level upon PCP evaluation. Strain all urine, collect the stone for stone analysis. Follow-up with urology in 2 to 3 weeks upon discharge. Recommend to establish with diabetic clinic, follow-up closely with diabetic clinic or your primary care physician for your new onset diabetes management. You are being discharged on metformin for your new onset diabetes. You are advised to maintain lifestyle modification as discussed by diabetes educator and myself at bedside with you. For your blood pressure, as discussed at bedside maintain blood pressure measurement twice a day, maintain a log to take it to your primary care physician so that they can evaluate/adjust your blood pressure medication. You are being discharged on a small dose of lisinopril for your blood pressure control. Take your medications as prescribed. Discharge Exam GENERAL: Alert and oriented x3. NAD, on RA. Class III obese. HEENT: No pallor, no icterus. Pupils equal, round and reactive to light. Oral mucosa moist. NECK: No JVD, no neck masses. HEART: S1 and S2 heard. Regular rate and rhythm. No murmur, no gallop. RESPIRATORY SYSTEM: Normal AP diameter. No accessory muscle use. No wheezing, no crackles. ABDOMEN: Soft, bowel sounds present, nontender, no distention. CENTRAL NERVOUS SYSTEM: No facial droop. Speech is clear. Obeys simple commands. Moves extremities. EXTREMITIES: No edema, no erythema seen. No costovertebral angle tenderness. Updated Medication List Medication Instructions Recorded Confirmed Type acetaminophen 325 mg tablet 650 mg PO Q8H PRN mild pain (scale 03/25/22 Rx score 1-4) #30 tabs blood sugar diagnostic (OneTouch #100 ea 03/25/22 Rx Verio test strips) blood-glucose meter (OneTouch #1 ea 03/25/22 Rx Verio Meter) cefdinir 300 mg capsule 300 mg PO BID 5 days #10 caps 03/25/22 Rx lancets 33 gauge (OneTouch Delefe #100 ea 03/25/22 Rx Lancets) lisinopril 2.5 mg tablet 2.5 mg PO QAM #30 tabs 03/25/22 Rx metformin 500 mg tablet,extended 500 mg PO PM #30 tabs 03/25/22 Rx release 24 hr oxycodone 5 mg tablet 5 mg PO BID PRN severe pain (scale 03/25/22 Rx score 7-10) 3 days #6 tabs tamsulosin 0.4 mg capsule 0.4 mg PO QAM #30 caps 03/25/22 Rx Hospital Stay Data Consultations 03/23/22 16:36 ED Decision to Admit Stat 03/23/22 16:43 Consult Urology Stat Diagnostic Imagining Performed 03/23/22 15:27 CT Abd and Pelvis [CT abd pelvis IV con only] Stat Pending Results Patient Have Any Pending Studies at Discharge: No Discharge Instructions Given to Patient (Per Discharging Provider) Follow-up with your primary care physician within a week time. And likely you will need blood test CBC/CMP/magnesium level upon PCP evaluation. Strain all urine, collect the stone for stone analysis. Follow-up with urology in 2 to 3 weeks upon discharge. Recommend to establish with diabetic clinic, follow-up closely with diabetic clinic or your primary care physician for your new onset diabetes management. You are being discharged on metformin for your new onset diabetes. You are advised to maintain lifestyle modification as discussed by diabetes educator and myself at bedside with you. For your blood pressure, as discussed at bedside maintain blood pressure measurement twice a day, maintain a log to take it to your primary care physician so that they can evaluate/adjust your blood pressure medication. You are being discharged on a small dose of lisinopril for your blood pressure control. Take your medications as prescribed. Total Time Total Time Spent Total Time Spent (In Minutes): 50
== END 2022-03-25 16:35 | disposition home or self-care (01) | DRG 690 ==
LOC: ED 12:45 → 3W 16:42 → SUATTDRO 16:42 → 3W 18:23